=== PATIENT | male | born 1955 | race African-American/Black ===

== ENCOUNTER → 2016-06-15 | Day surgery (SDC) | payer BC ==
[~2016-06-15] MED LIST: NO MEDICATIONS; NO MEDS; ZOCOR20 MG PO
--- NOTE | ~2016-06-15 | OR ---
Unit #: [id number] #: [id number] Patient: MARI SILVESTRE [id number] [address] [address] [id number] O MR#: [id number] NAME: MARI SILVESTRE ROOM: Date of Procedure: 06/15/2016 Admission Date: 06/15/2016 Surgeon: Soren Steele M.D. : 1955 Attending Physician: Soren Steele M.D. Primary Care Physician: Gene Fry Jr., M.D. OPERATIVE REPORT PROCEDURE PERFORMED Colonoscopy with biopsy. INDICATIONS FOR PROCEDURE History of colon polyps in the past. MEDICATIONS Monitored anesthesia. POSTOPERATIVE FINDINGS 1. 3 mm polyp, transverse colon, removed using biopsy forceps. 2. Rest of the colon to cecum was normal. 3. Prep was good. PLAN Follow up on the pathology report. Repeat colonoscopy in 5 years. DESCRIPTION OF PROCEDURE The patient was explained of the procedure, risks, and benefits along with risks and benefits of anesthesia. He was brought to the endoscopy room. Propofol anesthesia was given. Rectal exam was done, which was normal. Colonoscope was lubricated, passed up the rectum, advanced under direct vision all the way to the cecum. Cecum was identified by ileocecal valve and appendiceal orifice. At this point, I started to pull the scope out carefully looking. Small polyp seen in transverse colon was removed using biopsy forceps and sent for histopathology. Rest of the mucosa was normal and healthy. I retroflexed in the rectum, small hemorrhoids seen. Scope was gently pulled out. He tolerated it well. Dictated by... Vel Ramirez/martin TD: 06/15/2016 23:10 JOB #: [id number] Unit #: [id number] #: [id number] Patient: MARI SILVESTRE OPERATIVE REPORT Page 1 of 1 X Soren Steele MD X PROCEDURE OPERATIVE NOTE
== END | disposition home or self-care (01) ==
LOC: COPS 08:39
DX: D12.2 Benign neoplasm of ascending colon (principal)
CPT/HCPCS: 88305

== ENCOUNTER → 2016-10-09 | Outpatient (CLI) | payer BC ==
--- NOTE | ~2016-10-09 | US77 ---
[facility] A Service of [facility] RADIOLOGY TEXT RESULTS PATIENT: MARI SILVESTRE LOCATION: [facility] : 57 UNIT #: [id number] AGE: [address]: Gene Fry MD SEX: M ORDER DR: [id number] [facility] [address] [place], [place] [address] [id number] O MR#: [id number] Acc #: [id number] NAME: MARI SILVESTRE : 1955 SEX: M STUDY DATE/TIME: 10/09/2016 12:29 UNIT: US ROOM: STUDY DESCRIPTION: US Kidney Bilateral Complete Attending Physician: Gene Fry Jr., M.D. Referring Physician: Gene Fry Jr., M.D. Ordering Physician: Gene Fry Jr., M.D. Primary Care Physician: Gene Fry Jr., M.D. MEDICAL IMAGING REPORT This report is preliminary unless electronic signature is present EXAM Bilateral renal ultrasound DATE 10/09/2016 HISTORY 61-year-old male with abnormal elevated renal function test 1 month ago. Hypertension. BUN 13. Creatinine 1.4. GFR 61. COMPARISON None. FINDINGS Right kidney measures 10.4 x 4.9 x 6.1 cm. Left kidney measures 11.5 x 5.3 x 6.8 cm. Both kidneys maintain normal cortical thickness and cortical echotexture. No cystic or solid renal mass lesion, shadowing stone or hydronephrosis is evident. Urinary bladder is partially distended and appears unremarkable. IMPRESSION Normal bilateral renal ultrasound. Dictated by... Gail Saul M.D. THIS IS AN ELECTRONICALLY VERIFIED REPORT Gail Saul M.D. at 10/10/2016 8:56 AM [facility]/daphney TD: 10/09/2016 23:38 JOB #: [id number] [facility] A Service of [facility] RADIOLOGY TEXT RESULTS PATIENT: MAR[facility]ILVESTRE [id number] [birth year] UNIT #: [id number] AGE: [address]: Gene Fry MD SEX: M ORDER DR: MEDICAL IMAGING REPORT Page 1 of 1 COPY
== END | disposition home or self-care (01) ==
LOC: CGUS 11:58
DX: R79.89 Other specified abnormal findings of blood chemistry (principal)
CPT/HCPCS: 76770